=== PATIENT | male | born 1975 | race Caucasian/White ===

== ENCOUNTER 2024-01-01 18:31 | Inpatient (IN) | payer OTHER ==
[2024-01-01 19:21] VITALS: BMI 28.1
[2024-01-01] MEDS ORDERED: BENZONATATE 200 MG CAPSULE PO PRN (21:20)
[2024-01-01] MEDS ORDERED: BENZOCAINE/MENTHOL (CHLORASEPTIC ) LOZENGE MM PRN (21:20)
[2024-01-01] MEDS ORDERED: POLYETHYLENE GLYCOL (HEALTHYLAX) 3350 17 GM PACKET PO PRN (21:20)
[2024-01-01] MEDS ORDERED: DICYCLOMINE HCL 10 MG CAPSULE PO PRN (21:20)
[2024-01-01] MEDS ORDERED: NICOTINE POLACRILEX 2 MG GUM BUC PRN (21:20)
[2024-01-01] MEDS ORDERED: guaiFENesin 600 MG TABLET.ER (FP) PO PRN (21:20)
[2024-01-01] MEDS ORDERED: IBUPROFEN 400 MG TABLET (FP) PO PRN (21:20)
[2024-01-01] MEDS ORDERED: LOPERAMIDE HCL 2 MG CAPSULE PO PRN (21:20)
[2024-01-01] MEDS ORDERED: BISMUTH SUBSALICYLATE 524 MG/30 ML PO PRN (21:20)
[2024-01-01] MEDS ORDERED: P-EPHED 60MG/TRIPROLIDI 2.5MG TABLET PO PRN (21:20)
[2024-01-01] MEDS ORDERED: ONDANSETRON *ODT* 4 MG TABLET SL PRN (21:20)
[2024-01-01] MEDS ORDERED: NICOTINE POLACRILEX 2 MG LOZENGE BC PRN (21:20)
[2024-01-01] MEDS ORDERED: MAG HYDROX/AL HYDROX/SIMETH 30 ML UNIT-DOSE CUP PO PRN (21:20)
[2024-01-01] MEDS ORDERED: MAGNESIUM HYDROX 2400MG/30ML ORAL SUSPENSION 30 ML CUP PO PRN (21:20)
[2024-01-01] MEDS ORDERED: diazePAM 5 MG TABLET PO PRN (21:22)
[2024-01-01] MEDS: IBUPROFEN 600 MG TABLET (FP) PO PRN (23:00)
[2024-01-01] MEDS: MELATONIN 5 MG TABLETS PO SCH (23:02)
[2024-01-01] MEDS: THIAMINE 100 MG TABLET PO SCH (23:02)
[2024-01-01] MEDS: diazePAM 5 MG TABLET PO SCH (23:07)
[2024-01-02] MEDS: ACETAMINOPHEN 325 MG TABLET (FP) PO PRN (01:10)
[2024-01-02] MEDS: METHOCARBAMOL 500 MG TABLET PO PRN (01:10)
[2024-01-02] MEDS: hydrOXYzine PAMOATE 25 MG CAPSULE (FP) PO PRN (01:10)
[2024-01-02] MEDS: PRENATAL VITAMINS W/ FOLIC ACID TABLET (FP) PO SCH (10:06)
[2024-01-02] MEDS: buPROPion HCL 75 MG TABLET PO SCH (10:45)
[2024-01-02 15:57] LABS: HEMATOCRIT 42.9 % (35.4-49); HEMOGLOBIN 14.6 GM/dL (11.7-16.9); MCH 33.5 pg (25.7-33.7); MEAN CELL VOLUME 98.6 fl (80-96); MEAN PLT VOLUME 8.7 fl (7.5-11.1); PLATELET COUNT 97 10^3/uL (134-434); RBC 4.36 M/mm3 (4.00-5.60); WHITE BLOOD COUNT 4.6 K/mm3 (4.0-10.0)
[2024-01-02 16:06] LABS: CHLORIDE 104 mmol/L (98-107); POTASSIUM 3.9 mmol/L (3.5-5.1); SODIUM 138 mmol/L (136-145)
[2024-01-02 16:18] LABS: SGPT/ALT 69 U/L (13-61)
[2024-01-02 16:19] LABS: CALCIUM 8.8 mg/dL (8.5-10.1)
[2024-01-02 16:20] LABS: ALBUMIN 3.5 g/dl (3.4-5.0); ANION GAP 7 mmol/L (4-13); BLOOD UREA NITROGEN 7.2 mg/dL (7-18); CO2 26 mmol/L (21-32); GLUCOSE,RANDOM 92 mg/dL (74-106)
[2024-01-02 16:23] LABS: CREATININE 0.6 mg/dL (0.55-1.3); SGOT/AST 101 U/L (15-37)
[2024-01-02 16:24] LABS: BILIRUBIN,TOTAL 1.1 mg/dL (0.2-1); TOT PROT 6.7 g/dl (6.4-8.2)
[2024-01-02 16:26] LABS: ALK PHOS 103 U/L (45-117)
[2024-01-03] MEDS: diazePAM 5 MG TABLET PO SCH (05:58)
[2024-01-03 13:13] VITALS: RESP 18
[2024-01-03 17:30] VITALS: BP 118/88; PULSE 77; TEMP 98.7
[2024-01-04] MEDS ORDERED: diazePAM 5 MG TABLET PO SCH (06:00)
[2024-01-05] MEDS ORDERED: diazePAM 5 MG TABLET PO ONE (06:00)
== END 2024-01-03 17:33 | disposition left against medical advice (07) | DRG 770 ==
LOC: YASAS 18:31 → Y6N 22:04
PROVIDERS: ADMIT Allergy & Immunology; ATTEND Surgery
PROC: HZ2ZZZZ Detoxification Services for Substance Abuse Treatment (ICD-10-PCS; principal; 2024-01-01)
DX: F10.230 Alcohol dependence with withdrawal, uncomplicated (principal); F15.20 Other stimulant dependence, uncomplicated; F12.20 Cannabis dependence, uncomplicated; F17.210 Nicotine dependence, cigarettes, uncomplicated; F98.8 Other specified behavioral and emotional disorders with onset usually occurring in childhood and adolescence
CPT/HCPCS: 36415; 80053; 80305; 80307; 85027; 86780; 93005; 93010